=== PATIENT | female | born 1960 | race Caucasian/White ===

== ENCOUNTER 2017-05-13 18:40 | Emergency (ER) | payer SELFPAY ==
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
[2017-05-13 21:31] VITALS: BP 159/78; TEMP 97.6; O2SAT 98
== END 2017-05-13 21:30 | disposition home or self-care (01) ==
LOC: ER 18:40
DX: S61.512A Laceration without foreign body of left wrist, initial encounter (principal); F32.2 Major depressive disorder, single episode, severe without psychotic features; Z87.891 Personal history of nicotine dependence; X78.1XXA Intentional self-harm by knife, initial encounter; Y92.9 Unspecified place or not applicable

== ENCOUNTER 2020-07-01 05:09 | Emergency (ER) | payer MEDICARE, MEDICAID ==
[2020-07-01] MEDS ORDERED: SODIUM CHLORIDE 0.9% (FLUSH) 10 ML SYG IV PRN (05:13)
[2020-07-01] MEDS ORDERED: NITROGLYCERIN 0.4 MG 25 EA TAB SL ONE (05:20)
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
[2020-07-01] MEDS ORDERED: MORPHINE SULFATE INJ 10 MG/ML VIAL IV ONE (05:34)
[2020-07-01] MEDS ORDERED: POTASSIUM CHLORIDE 20 MEQ TAB PO ONE (05:54)
[2020-07-01] MEDS ORDERED: NITROGLYCERIN 2% 1 GM UD TOP ONE ×2 (05:59→08:04)
[2020-07-01] MEDS ORDERED: cefTRIAXone SODIUM 1 GM in SODIUM CHL 0.9% 50ML MIN-BAG+ 50 ML IVPB ONE (07:57)
[2020-07-01] MEDS ORDERED: ALBUTEROL INHALER 64 PUFF/8GM INH ONE (09:46)
[2020-07-01] MEDS ORDERED: methylPREDNISolone SODIUM SUC 125 MG/2 ML VIAL IV ONE (09:47)
[2020-07-01 12:05] VITALS: O2SAT 95
[2020-07-01 12:10] VITALS: BP 154/87; TEMP 97.4
--- NOTE | 2020-07-01 20:09 | RAD ---
EXAM: XR Chest, 1 View CLINICAL HISTORY: The patient is 59 years old and is Female; chest pain, shortness of breath TECHNIQUE: Single upright portable view of the chest. COMPARISON: No relevant prior studies available. FINDINGS: Lungs: Bibasilar subsegmental atelectasis and/or infiltrates. Pleural space: No significant pleural fluid. No pneumothorax. Heart: The cardiac silhouette is enlarged versus artifact of AP technique. Mediastinum: Unremarkable. Bones/joints: No acute fracture identified. Upper abdomen: No free air in the visualized upper abdomen. IMPRESSION: Bibasilar subsegmental atelectasis and/or infiltrates. Electronically signed by: Ludy Arthur MD 07/01/2020 6:14 AM CDT
--- NOTE | 2020-07-01 20:10 | CT ---
CT angiogram chest with contrast on 07/01/2020 CLINICAL INDICATION: Chest pain, elevated d-dimer, shortness of breath TECHNIQUE: Multiple axial images are obtained throughout the chest following the administration of IV contrast. Computer generated 3D reconstructions/MIPS were performed. This exam was performed according to our departmental dose-optimization program, which includes automated exposure control, adjustment of the mA and/or kV according to patient size and/or use of iterative reconstruction technique. Total DLP is 763.3 mGy*cm. COMPARISON: None FINDINGS: Left common carotid artery stent is partially imaged on the first few images. There is no thoracic aortic aneurysm or dissection. Exophytic right renal cyst is noted off the upper pole of the right kidney. Visualized upper abdomen is otherwise unremarkable. There are small bilateral pleural effusions. There is no pericardial effusion. There are multiple small to borderline size mediastinal lymph nodes that are likely reactive. There are no filling defects within the pulmonary arteries to suggest pulmonary embolus. Emphysematous changes of the lungs are noted. There is septal thickening bilaterally most consistent with mild edema. There is minimal bibasilar atelectasis. No bony abnormality is noted. IMPRESSION: 1. No evidence of pulmonary embolus. 2. Findings most consistent with edema with small bilateral pleural effusions superimposed on emphysema. Electronically signed by: Sy Dyer 07/01/2020 6:58 AM CDT
== END 2020-07-01 11:32 | disposition short-term general hospital (02) ==
LOC: ER 05:09
DX: I20.0 Unstable angina (principal); I49.3 Ventricular premature depolarization; I25.10 Atherosclerotic heart disease of native coronary artery without angina pectoris; I10 Essential (primary) hypertension; R06.00 Dyspnea, unspecified; I25.2 Old myocardial infarction; Z20.828 Contact with and (suspected) exposure to other viral communicable diseases; Z95.5 Presence of coronary angioplasty implant and graft; Z87.891 Personal history of nicotine dependence
CPT/HCPCS: 36415; 71045; 71275; 80053; 81001; 84484; 85025; 85379; 87086; 87635; 93005; 94664; J0696; J2270; J2930; J7050

== ENCOUNTER → 2020-08-04 | Outpatient (CLI) | payer MEDICARE, MEDICAID | LOC: BFHH 11:01 | PROVIDERS: ATTEND Family Medicine | DX: I11.0 Hypertensive heart disease with heart failure (principal); I50.33 Acute on chronic diastolic (congestive) heart failure; I25.10 Atherosclerotic heart disease of native coronary artery without angina pectoris; J44.9 Chronic obstructive pulmonary disease, unspecified; M15.0 Primary generalized (osteo)arthritis; I65.23 Occlusion and stenosis of bilateral carotid arteries; Z86.73 Personal history of transient ischemic attack (TIA), and cerebral infarction without residual deficits; Z79.82 Long term (current) use of aspirin ==

== ENCOUNTER → 2020-09-08 | Outpatient (CLI) | payer MEDICARE, MEDICAID | LOC: BFHH 12:30 | PROVIDERS: ATTEND Internal Medicine Hematology & Oncology | DX: E53.8 Deficiency of other specified B group vitamins (principal); Z13.1 Encounter for screening for diabetes mellitus; I11.0 Hypertensive heart disease with heart failure; I50.9 Heart failure, unspecified ==

== ENCOUNTER → 2020-09-11 | Outpatient (CLI) | payer MEDICARE, MEDICAID ==
--- NOTE | 2020-09-11 19:25 | RAD ---
EXAM DESCRIPTION: Elbow,Right 3 Views CLINICAL HISTORY: 60 years Female, PAIN IN ELBOW COMPARISON: None. TECHNIQUE: 3 view radiograph of the right elbow. IMPRESSION: No acute displaced fracture. No dislocation. Anterior and posterior fat pads are non-displaced. No radiographically apparent soft tissue abnormality. Electronically signed by: Santi Bangura MD 09/11/2020 7:24 PM CDT
== END ==
LOC: RAD 08:34
PROVIDERS: ATTEND Orthopaedic Surgery
DX: M70.21 Olecranon bursitis, right elbow (principal); M25.521 Pain in right elbow

== ENCOUNTER → 2020-09-19 | Outpatient (CLI) | payer MEDICARE, MEDICAID | LOC: YCFC.O 15:25 | PROVIDERS: ATTEND Nurse Practitioner Family | DX: Z01.818 Encounter for other preprocedural examination (principal); R82.5 Elevated urine levels of drugs, medicaments and biological substances; I50.9 Heart failure, unspecified ==

== ENCOUNTER 2020-09-24 05:07 | Day surgery (SDC) | payer MEDICARE, MEDICAID ==
[2020-09-24] MEDS ORDERED: SODIUM CHL 0.9% 100ML MINI-BAG 100 ML IVPB ONE (06:57)
[2020-09-24] MEDS ORDERED: ceFAZolin SODIUM 1 GM VIAL ONE ×3 (06:57→09:44)
[2020-09-24] MEDS ORDERED: LACTATED RINGERS 1,000 ML ONE (06:57)
[2020-09-24] MEDS ORDERED: PROPOFOL 200 MG/20 ML VIAL IV ONE (07:00)
[2020-09-24] MEDS ORDERED: ePHEDrine SULF 50 MG/ML ONE (07:00)
[2020-09-24] MEDS ORDERED: DEXAMETHASONE INJ 10 MG/ML VIAL ONE (07:00)
[2020-09-24] MEDS ORDERED: SODIUM CHLORIDE 0.9% 50 ML VIAL ONE (07:00)
[2020-09-24] MEDS ORDERED: LIDOCAINE 1% 10 ML VIAL INJ ONE ×2 (07:00→07:57)
[2020-09-24] MEDS ORDERED: MAGNESIUM SULFATE INJ 1 GM/2 ML VIAL ONE (07:00)
[2020-09-24] MEDS ORDERED: LIDOCAINE 1% W/ EPINEPHRINE 20 ML VIAL INJ ONE ×2 (07:42→09:06)
[2020-09-24] MEDS ORDERED: VANCOMYCIN HCL INJ 1,000 MG VIAL IVPB ONE ×3 (07:42→09:44)
[2020-09-24] MEDS ORDERED: BUPIVACAINE 0.5% W/EPI 30 ML VIAL INJ ONE (07:42)
[2020-09-24] MEDS ORDERED: BUPIVACAINE 0.5% 30 ML VIAL INJ ONE ×2 (07:57→09:06)
[2020-09-24] MEDS ORDERED: KETAMINE HCL 100 MG/ML VIAL ONE (08:53)
[2020-09-24] MEDS ORDERED: fentaNYL CITRATE INJ 50 MCG/ML 2 ML AMP ONE (08:53)
[2020-09-24] MEDS ORDERED: MIDAZOLAM INJ 2 MG/2 ML VIAL ONE (08:53)
[2020-09-24] MEDS ORDERED: ceFAZolin SODIUM 1 GM VIAL IRRIG ONE (09:06)
[2020-09-24] MEDS ORDERED: LACTATED RINGERS 200 ML IVS ONE (10:38)
[2020-09-24 12:49] VITALS: BP 150/77; TEMP 98.1; O2SAT 98
--- NOTE | 2020-10-07 09:05 | OP ---
DATE OF PROCEDURE: 09/24/20 PREOPERATIVE DIAGNOSIS: 1. Bursitis of the right elbow. POSTOPERATIVE DIAGNOSIS: 1. Bursitis of the right elbow. PROCEDURE: 1. Bursectomy, right elbow. SURGEON: Hemant Mancini MD SPA MANAGER/ESTHETICIAN: Nickolas Germain CST, SA-C ANESTHESIA: General anesthesia. COMPLICATIONS: None. FINDINGS: Inflamed bursa with fluid-filled, enlarged sac. INDICATION: Tatum has a history of pain and swelling in the elbow. She has had aspiration of it, however, she failed to gain relief from the swelling and discomfort. She did have white cells in that and, therefore, we talked about the potential for spontaneous infection of these. After discussing the risks, benefits and alternatives to operative therapy, she gave informed consent for bursectomy. PROCEDURE: The patient was brought to the Operating Room and placed in supine position. General anesthesia was induced and the patient's arm was sterilely prepped and draped. Following prepping and draping, an incision was made directly overlying the bursa. After the incision, blunt dissection was used to remove the mass in its entirety. The wound was very thoroughly irrigated and closed with combination of running and interrupted subcuticular stitches. Sterile dressings were placed. The patient was awoken from anesthesia and taken to Recovery. POSTOPERATIVE PLAN: Cultures were taken and should we have any growth, we will place her on appropriate antibiotic. She will followup with us in 2 days. She will have a compressive dressing. #[id number] [facility]
== END 2020-09-24 12:05 | disposition home or self-care (01) ==
LOC: AMB 05:07
PROVIDERS: ATTEND Orthopaedic Surgery
DX: M75.121 Complete rotator cuff tear or rupture of right shoulder, not specified as traumatic (principal); I25.10 Atherosclerotic heart disease of native coronary artery without angina pectoris; J44.9 Chronic obstructive pulmonary disease, unspecified; I11.0 Hypertensive heart disease with heart failure; I50.9 Heart failure, unspecified; I25.2 Old myocardial infarction; E78.00 Pure hypercholesterolemia, unspecified; F32.9 Major depressive disorder, single episode, unspecified; Z86.73 Personal history of transient ischemic attack (TIA), and cerebral infarction without residual deficits; Z79.82 Long term (current) use of aspirin; Z79.899 Other long term (current) drug therapy
CPT/HCPCS: 01710; 24105; 36415; 80048; 80307; 81001; 85025; 87070; 87205; 88304; A4216; J0690; J1100; J2250; J3010; J3370; J3475; J3490; J7050; J7120

== ENCOUNTER → 2020-10-03 | Outpatient (CLI) | payer MEDICARE, MEDICAID ==
--- NOTE | 2020-10-03 14:45 | RAD ---
EXAM: Hand,Right 3 Views INDICATION: 60 years Female, PAIN IN RIGHT HAND COMPARISON: None available FINDINGS: 3 views of the right hand were performed. No fracture or dislocation. No destructive osseous lesion. Minimal scattered degenerative change in the right hand. No gross soft tissue abnormality or radiopaque foreign body. IMPRESSION: Minimal scattered degenerative change in the right hand without fracture or dislocation. Electronically signed by: Susie Francis MD 10/03/2020 2:43 PM [facility]
== END ==
LOC: LAB.O 09:03
PROVIDERS: ATTEND Orthopaedic Surgery
DX: M19.041 Primary osteoarthritis, right hand (principal); M25.521 Pain in right elbow

== ENCOUNTER → 2020-10-08 | Outpatient (CLI) | payer MEDICARE, MEDICAID | LOC: RESP 14:00 | PROVIDERS: ATTEND Nurse Practitioner Family | DX: I25.2 Old myocardial infarction (principal) ==

== ENCOUNTER 2020-12-27 21:13 | Emergency (ER) | payer MEDICARE, MEDICAID ==
[2020-12-27] MEDS ORDERED: ASPIRIN (CHEWABLE) 81 MG TAB ONE (21:25)
[2020-12-27] MEDS ORDERED: NITROGLYCERIN 0.4 MG 25 EA TAB SL ONE ×2 (21:25→21:39)
[2020-12-27] MEDS ORDERED: ALUM & MAG HYDROX-SIMETHICONE 30 ML UD ONE (21:29)
[2020-12-27] MEDS ORDERED: IPRATROPIUM/ALBUTEROL 3 ML VIAL NEB ONE (21:29)
[2020-12-27] MEDS ORDERED: ALUM & MAG HYDROX-SIMETHICONE 30 ML, LIDOCAINE VISCOUS 2% 15 ML PO ONE ×2 (21:29)
[2020-12-27] MEDS ORDERED: LIDOCAINE HCL 2% (MOUTH-THROAT) 15 ML UD ONE (21:29)
[2020-12-27] MEDS ORDERED: ASPIRIN (CHEWABLE) 81 MG TAB PO ONE (21:39)
[2020-12-27] MEDS ORDERED: ACETYLCYSTEIN 20 % 6,000 MG/30 ML VIAL PO ONE (22:08)
[2020-12-27] MEDS ORDERED: METOPROLOL TARTRATE 25 MG TAB PO ONE (22:11)
--- NOTE | 2020-12-27 22:23 | RAD ---
EXAM DESCRIPTION: Abdomen Series CLINICAL HISTORY: epigastric and chest pain and sob COMPARISON: None. FINDINGS: Single frontal view of the chest. Upright and supine views of the abdomen. Cardiomediastinal silhouette: Cardiomegaly. Leads overlie the chest. Lungs: No consolidation, pneumothorax, or pleural effusion. Bones: Mild degenerative endplate spondylosis of the spine. Bowel: No dilated loops of large or small bowel. Peritoneum: No free intraperitoneal air identified. Solid organs: No definite organomegaly. Calcifications: No abnormal calcifications. Other: Prior cholecystectomy. Postoperative change in the pelvis. IMPRESSION: 1. No acute pulmonary process identified. 2. Cardiomegaly. 3. Nonobstructive bowel gas pattern. Electronically signed by: Buddy Colón 12/27/2020 10:22 PM [facility]
[2020-12-27] MEDS ORDERED: LISINOPRIL 10 MG TAB PO ONE (22:38)
--- NOTE | 2020-12-27 23:02 | CT ---
CLINICAL HISTORY: increased ddimer, bnp, chest pain and sob COMPARISON: 07/01/2020. TECHNIQUE: CT CHEST ANGIOGRAPHY WITH IV CONTRAST on 12/27/2020 10:07 PM [employer]. MIPS reconstructions were generated. This exam was performed according to our departmental dose-optimization program, which includes automated exposure control, adjustment of the mA and/or kV according to patient size and/or use of iterative reconstruction technique. MIP images were generated. FINDINGS: Thoracic aorta is normal in course and caliber without aneurysm or dissection. Pulmonary arteries are adequately opacified without acute or chronic filling defects. The heart is moderately enlarged. There is no pericardial effusion. Intrathoracic lymph nodes are not enlarged. There is a trace left pleural effusion. There is a small right pleural effusion. Central airways are patent. There is upper lung centrilobular emphysema. There is minimal bibasilar atelectasis. In the upper abdomen, cholecystectomy was performed. There is trace perihepatic ascites. There are no acute osseous findings. No suspicious bony lesions. IMPRESSION: Cardiomegaly with no aortic dissection or aneurysm. No pulmonary embolus. No pneumonia. Pleural effusions with trace ascites. Electronically signed by: Andrea Wright MD 12/27/2020 11:00 PM [employer]
[2020-12-27] MEDS ORDERED: FUROSEMIDE INJ 20 MG/2 ML VIAL IV ONE (23:09)
[2020-12-27] MEDS ORDERED: amLODIPine BESYLATE 5 MG TAB PO ONE (23:10)
[2020-12-27] MEDS ORDERED: METOPROLOL TARTRATE INJ 5 MG/5 ML VIAL IV ONE (23:10)
[2020-12-27] MEDS ORDERED: SUCRALFATE 1 GM/10 ML 1 GM UD PO ONE (23:11)
[2020-12-27] MEDS ORDERED: PANTOPRAZOLE SODIUM IV 40 MG VIAL IV ONE (23:11)
[2020-12-27] MEDS ORDERED: ENOXAPARIN SODIUM 100 MG/ML SYG SUBCU ONE (23:23)
[2020-12-28] MEDS ORDERED: ONDANSETRON INJ 4 MG/2 ML VIAL IV ONE (00:24)
[2020-12-28] MEDS ORDERED: ONDANSETRON INJ 4 MG/2 ML VIAL ONE (00:24)
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
[2020-12-28 06:06] VITALS: BP 158/97; TEMP 97.1; O2SAT 94
== END 2020-12-28 05:30 | disposition home or self-care (01) ==
LOC: ER 21:13
DX: I16.1 Hypertensive emergency (principal); I50.43 Acute on chronic combined systolic (congestive) and diastolic (congestive) heart failure; I11.0 Hypertensive heart disease with heart failure; R11.2 Nausea with vomiting, unspecified; J44.9 Chronic obstructive pulmonary disease, unspecified; R56.9 Unspecified convulsions; I25.2 Old myocardial infarction; Z20.822 Contact with and (suspected) exposure to COVID-19; Z86.73 Personal history of transient ischemic attack (TIA), and cerebral infarction without residual deficits; Z87.891 Personal history of nicotine dependence; Z90.49 Acquired absence of other specified parts of digestive tract; Z79.82 Long term (current) use of aspirin; Z79.899 Other long term (current) drug therapy
CPT/HCPCS: 71275; 74019; 80053; 82150; 82550; 82553; 83690; 83735; 83880; 84484; 85025; 85379; 85610; 85730; 87635; 93005; 94640; J1650; J1940; J2405; J7620

== ENCOUNTER → 2021-01-19 | Outpatient (CLI) | payer OTHER, MEDICAID ==
--- NOTE | 2021-01-19 18:56 | RAD ---
EXAM DESCRIPTION: XR Chest, 2 Views CLINICAL HISTORY: 60 years Female CONGESTIVE HEART FAILURE TECHNIQUE: Two views of the chest. COMPARISON: CT scan dated 12/27/2020, radiograph dated 07/01/2020 FINDINGS: Mild cardiomegaly with mild bibasilar pulmonary edema. Possible trace right pleural effusion. No pneumothorax. No acute osseous lesion. IMPRESSION: Mild congestive heart failure. 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
== END ==
LOC: YCFC.O 18:12
PROVIDERS: ATTEND Nurse Practitioner Family
DX: I50.9 Heart failure, unspecified (principal); I10 Essential (primary) hypertension